=== PATIENT | female | born 1980 | race Caucasian/White ===

== ENCOUNTER 2018-09-08 01:06 | Emergency (ER) | payer BC, SELFPAY ==
[2018-09-08 01:08] VITALS: BP 143/89; PULSE 93; RESP 18; TEMP 36.8; O2SAT 97; BMI 25.0
--- NOTE | 2018-09-08 01:44 | RAD_ITS ---
HISTORY: Pain. EXAM/TECHNIQUE: XR Foot Min 3 Views: Right. COMPARISON: Ankle radiographs same date. FINDINGS: # of images incl. paperwork: 3 Please see ankle radiograph report regarding the lateral malleolar fracture. No other fracture is evident. The foot is intact with anatomic alignment and normal bony mineralization. RAD/Foot min 3 Views IMPRESSION: No fracture of the foot. Acute lateral malleolar fracture. at 0219 Reported and signed by: Abdiel Dinh MD Electronically Signed: Abdiel Dinh, at 2:18 EST Tel , Service support ,
--- NOTE | 2018-09-08 01:44 | RAD_ITS ---
HISTORY: Pain. EXAM/TECHNIQUE: XR Ankle Min 3 Views: Right. COMPARISON: None. FINDINGS: # of images incl. paperwork: 3 Acute fracture through the distal shaft of the fibula and the base of the lateral malleolus. The more distal portion is displaced laterally 3 mm. No other fracture is evident. Alignment otherwise anatomic. Soft tissue swelling adjacent to the fracture. RAD/Ankle min 3 Views IMPRESSION: Acute mildly displaced fracture through the base of the lateral malleolus. at 0218 Reported and signed by: Abdiel Dnih MD Electronically Signed: Abdiel Dinh, at 2:17 EST Tel , Service support ,
--- NOTE | 2018-09-08 02:34 | ED.DCSUM_ITS ---
- ER Visit Summary Date of Service: 09/08/18 Chief Complaint: Right foot pain History of Present Illness: The patient is a 38 F who presents with right foot pain and swelling. She was wrestling with her daughter about 2 hours ago. Her daughter fell onto her right foot. States that she felt a pop. She denies any other injuries. She denies recent illness. She does admit to alcohol intoxication tonight. Physical Examination: Afebrile vitals normal Heart regular rate and rhythm Lungs clear There is soft tissue swelling and focal tenderness over the lateral malleolus she has no tenderness at the foot itself she has brisk capillary refill normal sensation light touch no proximal fibular tenderness Test Results: Ankle and foot x-rays were obtained which showed acute mildly displaced fracture of the base of the lateral malleolus Emergency Department Course and Treatment: X-rays as above. Patient was given a boot orthosis and crutches and advised to not bear weight. She was referred to orthopedics. She was advised on rest ice elevation. She was given a prescription for short course of [place] for acute pain control and was discharged home. Treatment Plan: [] Disposition: Discharge Impression: Right lateral malleolus fracture This note was generated with [employer] dictation software. It may contain incorrect words, spelling, and punctuation that were not noted in review of the chart prior to signing ED Disposition - Plan for ED Patient: Referrals: Michael Espino MD [Primary Care Provider] -
--- NOTE | 2018-09-08 02:35 | DCINST.ED_ITS ---
ED Disposition - Plan for ED Patient: Instructions: ED Fx Ankle Lateral Malleolus Prescriptions: Hydrocodone Bitart/Apap 5-325 [Toby[place]anna 5MG-325MG] 1 tab PO Q6H PRN PRN 3 Days #10 tab PRN Reason: Pain Referrals: Michael Espino MD [Primary Care Provider] - Donaldo Guaman DO [STAFF PHYSICIAN] -
[2018-09-08 02:54] VITALS: PULSE 90; RESP 18
== END 2018-09-08 02:55 | disposition home or self-care (01) ==
LOC: ED 01:57
PROVIDERS: Emergency Provider Emergency Medicine; Family Provider Family Medicine; PCP Family Medicine
DX: S82.61XA Displaced fracture of lateral malleolus of right fibula, initial encounter for closed fracture (principal); W50.0XXA Accidental hit or strike by another person, initial encounter; Y93.72 Activity, wrestling; Y92.9 Unspecified place or not applicable; Y99.9 Unspecified external cause status; F10.129 Alcohol abuse with intoxication, unspecified
CPT/HCPCS: 73610; 73630; 99283

== ENCOUNTER → 2018-09-11 15:36 | Outpatient (CLI) | payer BC, SELFPAY ==
[2018-09-08 01:08] VITALS: BMI 25.0
--- NOTE | 2018-09-11 16:01 | RAD_ITS ---
STUDY: X-RAY CHEST REASON FOR EXAM: Female, 38 years old. Preoperative evaluation. History of smoker TECHNIQUE: PA and lateral views of the chest. COMPARISON: February 21, 2017 FINDINGS: The lungs are clear and expanded. There is no demonstrated pleural abnormality. Normal size heart. Normal mediastinum and [place]. Normal visualized pulmonary arteries. Normal visualized aortic arch and descending thoracic aorta. Normal visualized thoracic spine. Normal visualized ribs, clavicles, and shoulders. There is no demonstrated abnormality of the visualized soft tissue structures of the upper abdomen. RAD/Chest PA and Lateral IMPRESSION: No acute cardiopulmonary process. Electronically Signed: Aparna Romero MD at 16:46 EST Tel , Service support ,
--- NOTE | 2018-09-11 16:04 | EKG12_ITS ---
Test Reason : Blood Pressure : / mmHG Vent. Rate : 082 BPM Atrial Rate : 082 BPM P-R Int : 130 ms QRS Dur : 082 ms QT Int : 376 ms P-R-T Axes : 062 083 072 degrees QTc Int : 439 ms Normal sinus rhythm Normal ECG Confirmed by FORREST BOWEN ([id number]), greeting card editor EDUAR TY ([id number]) on 09/14/2018 1:31:17 PM Referred By: eLsli Cifuentes Confirmed By:FORREST BOWEN
[2018-09-11 16:44] LABS: Absolute Lymphocyte Count 1.68 X10^3/ul (0.83-4.51); Absolute Neutrophil Count 4.5 X10^3/uL (2.0-7.7); Basophil# 0.05 X10^3/uL; Basophil% 0.7 % (0-1); Eosinophils% 4.2 % (0-5); Hematocrit 44.4 % (37-47); Hemoglobin 14.8 g/dl (12.0-15.0); Lymphocyte # 1.68 X10^3/ul (4.0); Lymphocyte % 23.4 % (19-41); Mean Corp Hgb Conc 33.3 g/gl (32-36); Mean Corpuscular Hgb 36.6 pg (27.0-32.0); Mean Corpuscular Volume 109.9 fL (81-99); Mean Platelet Vol. 11.1 fl (6.2-12.0); Monocyte# 0.65 X10^3/uL; Monocyte% 9.1 % (0-10); Neutrophil # 4.47 X10^3/uL (2.7-7.7); Neutrophil % 62.3 % (47-70); Platelet Count 196 K/mm3 (150-450); RBC Distribution Width SD 52.2 fl (35.1-43.9); Red Blood Count 4.04 M/mm3 (4.2-5.4); White Blood Count 7.2 K/mm3 (4.4-11.0)
[2018-09-11 16:51] LABS: Anion Gap 7 (5-15); BUN 9 mg/dL (7-18); BUN/Creat Ratio 11.1 RATIO (10-20); Calcium,Total 8.7 mg/dL (8.5-10.1); Chloride 104 mmol/L (98-107); Creatinine, Serum 0.81 mg/dL (0.55-1.02); EST Glomerular Filtration Rate 83 mL/min (>60); Est Glom Filt Rate - Afr Amer 101 mL/min (>60); Glucose 85 mg/dL (74-106); Potassium 3.8 mmol/L (3.5-5.1); Sodium Level 137 mmol/L (136-145)
[2018-09-11 17:01] LABS: POSITIVE COUNT NO; POSITIVE DIFFERENTIAL NO; POSITIVE MORPHOLOGY NO
== END ==
LOC: LAB 15:46
PROVIDERS: Family Provider Family Medicine; PCP Family Medicine; Referring Provider Podiatrist Foot & Ankle Surgery; Visit Provider Podiatrist Foot & Ankle Surgery
DX: Z01.810 Encounter for preprocedural cardiovascular examination (principal); F17.200 Nicotine dependence, unspecified, uncomplicated
CPT/HCPCS: 36415; 71046; 80048; 85025; 93005

== ENCOUNTER 2018-09-25 05:45 | Day surgery (SDC) | payer BC, SELFPAY ==
[2018-09-25] VITALS (7 sets, daily range): BP systolic 113–148; BP diastolic 64–82; PULSE 75–115; RESP 14–18; TEMP 36.7–37.2; O2SAT 92–100; BMI 25.2
--- NOTE | 2018-09-25 07:30 | RAD_ITS ---
STUDY: X-RAY - RIGHT ANKLE REASON FOR EXAM: Female, 38 years old. ORIF fibular fracture TECHNIQUE: 8 view(s) of the ankle. COMPARISON: None. FINDINGS: Intraoperative spot fluoroscopy images were obtained demonstrating plate and screw fixation of the distal fibula. Ankle mortise appears maintained. Single osseous screw across the tibiotalar joint. Please see performing physician's report for further detail RAD/Ankle min 3 Views IMPRESSION: As above Electronically Signed: Noe Allen DO at 12:40 EDT Tel , Service support ,
[2018-09-25] MEDS: Cefazolin 2 GM in 0.9% Normal Saline 100 ML IV (07:40)
--- NOTE | 2018-09-25 09:16 | RAD_ITS ---
STUDY: X-RAY - RIGHT ANKLE REASON FOR EXAM: Female, 38 years old. Postop TECHNIQUE: 3 view(s) of the ankle. COMPARISON: None. FINDINGS: Patient has undergone ORIF of distal fibular fracture. Plate and screw fixation is noted. Single osseous screw bridging the tibiotalar joint. No evidence of ankle mortise widening. Overlying cast material is noted. Soft tissue swelling. Hardware appears intact RAD/Ankle min 3 Views IMPRESSION: As above Electronically Signed: Noe Allen DO at 12:41 EDT Tel , Service support ,
--- NOTE | 2018-09-25 09:23 | PCM.DC.ORTHO ---
Discharge Activity: May Not Drive, May not drive while taking narcotic pain medications., May Not Shower, Use Walker, Use Crutches Ice area for (Minutes): 20 - apply ice behind right knee 20 minutes of each hour while awake Weight Bearing Status: No weight bearing Keep extremity elevated above heart level: Operative Extremity Call your doctor if your incision/area has: Sudden Increased Bleeding Call your doctor if you observe: Fever of 101 or Higher, Shortness of breath, Dizziness, Chest pain, Increased palpitations (irregular heartbeat), Calf discomfort, Uncontrolled pain Cleanse incision/area with: Keep Dressing Clean & Dry Allergies/Adverse Reactions: Allergies vancomycin Allergy (Mild, Verified 09/18/18 15:05) Itching BENADRYL WITH MEDICATION Medications to take at Discharge Zylatine 1 drop EACH EYE DAILY 09/08/18 Oxycodone [Oxyir] 5 mg PO Q6H PRN PRN 7 Days #30 tab 09/25/18 The following prescriptions were given: Oxycodone [Oxyir] 5 mg PO Q6H PRN PRN 7 Days #30 tab PRN Reason: Pain Primary Care Physician: Michael Espino MD [Primary Care Provider] - Test Results: Test results from this visit will be discussed in further detail at your follow-up appointment, if applicable. Please Follow Up With: Lesli Cifuentes DPM - Please follow up at your previously scheduled post operative appointment next week. Proposed Discharge Date: 09/25/18
--- NOTE | 2018-09-25 09:27 | DCINST_ITS ---
Discharge Activity: May Not Drive, May not drive while taking narcotic pain medications., May Not Shower, Use Walker, Use Crutches Ice area for (Minutes): 20 - apply ice behind right knee 20 minutes of each hour while awake Weight Bearing Status: No weight bearing Keep extremity elevated above heart level: Operative Extremity Call your doctor if your incision/area has: Sudden Increased Bleeding Call your doctor if you observe: Fever of 101 or Higher, Shortness of breath, Dizziness, Chest pain, Increased palpitations (irregular heartbeat), Calf discomfort, Uncontrolled pain Cleanse incision/area with: Keep Dressing Clean & Dry Allergies/Adverse Reactions: Allergies vancomycin Allergy (Mild, Verified 09/18/18 15:05) Itching BENADRYL WITH MEDICATION Medications to take at Discharge Zylatine 1 drop EACH EYE DAILY 09/08/18 Oxycodone [Oxyir] 5 mg PO Q6H PRN PRN 7 Days #30 tab 09/25/18 The following prescriptions were given: Oxycodone [Oxyir] 5 mg PO Q6H PRN PRN 7 Days #30 tab PRN Reason: Pain Primary Care Physician: Michael Espino MD [Primary Care Provider] - Test Results: Test results from this visit will be discussed in further detail at your follow- up appointment, if applicable. Please Follow Up With: Lesli Cifuentes DPM - Please follow up at your previously scheduled post operative appointment next week. Proposed Discharge Date: 09/25/18
--- NOTE | 2018-09-25 09:50 | OP.PCM_ITS ---
Report of Operation Date of Procedure: 09/25/18 Pre-Operative Diagnosis: R distal fibula fracture w/ syndesmotic disruption, possible deltoid tear Post-Operative Diagnosis: R distal fibula fracture with syndesmotic disruption Surgery/Procedure Performed:: R ORIF distal fibula with trans-syndesmotic fixation; intraoperative stress views Description of Surgical Findings:: see dictation inking machine tender: Lisa Levin Type of Anesthesia:: General/Regional Estimated Blood Loss (mL): minimal Description of Procedure: Indications: Pt is a 38 yo F who sustained a R ankle fracture on 09/08/2018 and was seen in the [facility] ER the same day. She later followed up in my clinic where a gravity stress view of her right ankle showed increased syndesmotic gapping and medial clear space, along with her distal fibula fracture. She was seen by her PCP prior to surgery today. Smoking cessation was strongly recommended. She would like surgical intervention today. All risks, complications, and alternatives were discussed with the patient, and the patient signed an informed consent. No guarantees were given. Procedure: On 09/25/2018, Megan Rankin was visually and verbally identified in the preoperative holding area. The consent form was again reviewed with the patient, as were all risks, complications, and alternatives and the patient wished to proceed with the proposed surgery. The right ankle was marked as the correct operative extremity. The patient was brought to the operating room and placed on the operating room table in the lazy lateral position. After induction by anesthesia, a surgical time out was performed and all present were in agreement. a pneumatic thigh tourniquet was then placed. At this time the right lower extremity was prepped and draped in the usual sterile fashion. after exsanguination with an esmarch the tourniquet was inflated to 300 mmHg. At this time attention was directed to the right lateral ankle. Using a #15 blade a curvilinear incision was made over the distal fibula.The incision was bluntly carried deep through the subcutaneous tissues with careful attention paid to all bleeders, which were clamped and tied or bovied as necessary. All vital neurovascular structures were retracted. The peroneal tendons were retracted. The fracture line was identified and using blade and curette hematoma and soft tissue impingement was removed and the fracture was distracted and reduced. Fracture reduction and fibular length was confirmed by direct visualization and on intraoperative fluoroscopy. Reduction was maintained with a temporary k wire. A 3.5 lag screw was then placed per AO technique perpendicular to the fracture line. Good fixation was achieved. The temporary k wire was rem ирина. A Aleta Variax fibular plate was then placed with locking screws. Plate position and length as well as screw length was confirmed on intraoperative fluoroscopy. A cotton hook stress test and external rotation test was then done under intraoperative fluoroscopy which revealed increased syndesmotic gapping and slight increase in the medial clear space. A trans-syndesmotic screw was then placed, through the plate, across the tibiofibular joint and parallel to the tibiotalar joint. Length and position were confirmed on intraoperative fluoroscopy. The cotton hook stress test and external rotation stress views were repeated under intraoperative fluoroscopy. . There did not appear to be an syndesmotic gapping or increase in the medial clear space. I therefore did not open her medial ankle to perform deltoid repair. The incision was flushed with copious amounts of normal sterile saline and closure was initiated. 2.0 vicryl was used for deep tissue, 3.0 vicryl for subcutaneous tissue and 3.0 prolene for skin. Adaptic and dry sterile dressings were applied to the incision with a multilayer compressive bandage and well padded posterior splint. Total tourniquet time was 65 minutes with immediate capillary refill noted to all digits upon deflation. Intra operative fluoroscopy was utilized throughout the case, > 1 hour, to aid in visualization and confirmation of fracture reduction and screw and plate fixations. Interpretation of the images was vital to my decision making process. The patient tolerated the procedure and anesthesia well. The patient was then transported to the postanesthesia care unit by a member of the anesthesia team and myself with all vital signs stable and neurovascular status of the right lower extremity equal to pre-operative levels. At the end of the case all sponge, needle and instrument counts were found to be correct. Grafts/Implants Used: Aleta Vairax plate and screws - Complications none - Admit VTE Documentation VTE Present on Admission: No VTE Mechan Device Prophylaxis: SCD's, Knee High ISAK Hose VTE Pharm Prophylaxis ordered?: Yes
== END 2018-09-25 11:31 | disposition home or self-care (01) ==
LOC: SDC 05:46 → AC 05:48
PROVIDERS: Family Provider Family Medicine; PCP Family Medicine; Referring Provider Podiatrist Foot & Ankle Surgery; Visit Provider Podiatrist Foot & Ankle Surgery
PROC: (CPT 27792; principal; 2018-09-25 07:10)
DX: S82.831A Other fracture of upper and lower end of right fibula, initial encounter for closed fracture (principal); X58.XXXA Exposure to other specified factors, initial encounter; Y93.89 Activity, other specified; Y92.9 Unspecified place or not applicable
CPT/HCPCS: 27792; 27829; 64445; 73610; 76000; C1713; J7120; J2405

== ENCOUNTER → 2018-11-08 | Outpatient (CLI) | payer BC, SELFPAY ==
[2018-09-25 06:15] VITALS: BMI 25.2
[2018-11-08 10:05] LABS: Erythrocyte Sedimentation Rate 10 mm/hr (0-20)
[2018-11-08 10:08] LABS: Absolute Lymphocyte Count 1.31 X10^3/ul (0.83-4.51); Absolute Neutrophil Count 4.6 X10^3/uL (2.0-7.7); Basophil# 0.06 X10^3/uL; Basophil% 0.9 % (0-1); Eosinophil# 0.42 X10^3/uL; Hematocrit 42.9 % (37-47); Hemoglobin 14.6 g/dl (12.0-15.0); Lymphocyte # 1.31 X10^3/ul (4.0); Lymphocyte % 18.7 % (19-41); Mean Corpuscular Hgb 36.2 pg (27.0-32.0); Mean Corpuscular Volume 106.5 fL (81-99); Mean Platelet Vol. 10.3 fl (6.2-12.0); Monocyte# 0.65 X10^3/uL; Monocyte% 9.3 % (0-10); Neutrophil # 4.55 X10^3/uL (2.7-7.7); Platelet Count 198 K/mm3 (150-450); RBC Distribution Width CV 13.2 % (11.6-14.6); RBC Distribution Width SD 51.5 fl (35.1-43.9); Red Blood Count 4.03 M/mm3 (4.2-5.4)
[2018-11-08 10:12] LABS: POSITIVE COUNT NO; POSITIVE DIFFERENTIAL NO; POSITIVE MORPHOLOGY NO
[2018-11-08 10:47] LABS: ALB/GLOB Ratio 1.1 RATIO (0.9-2.4); AST(SGOT) 54 U/L (15-37); Alanine Aminotransfer ALT/SGPT 72 U/L (13-56); Albumin, Serum 4.1 g/dL (3.2-5.0); Alkaline Phosphatase 67 U/L (45-117); Anion Gap 10 (5-15); BUN 6 mg/dL (7-18); BUN/Creat Ratio 9.4 RATIO (10-20); CRP < 2.90 mg/L (0.0-3.0); Chloride 105 mmol/L (98-107); Creatinine, Serum 0.64 mg/dL (0.55-1.02); EST Glomerular Filtration Rate 110 mL/min (>60); Est Glom Filt Rate - Afr Amer 133 mL/min (>60); Globulin 3.6 g/dL (2.2-4.2); Glucose 74 mg/dL (74-106); Potassium 3.8 mmol/L (3.5-5.1); Protein, Total 7.7 g/dL (6.4-8.2); Sodium Level 139 mmol/L (136-145)
== END | disposition home or self-care (01) ==
PROVIDERS: Family Provider Family Medicine; PCP Family Medicine; Referring Provider Podiatrist Foot & Ankle Surgery; Visit Provider Podiatrist Foot & Ankle Surgery
DX: S82.61XD Displaced fracture of lateral malleolus of right fibula, subsequent encounter for closed fracture with routine healing (principal); T81.31XA Disruption of external operation (surgical) wound, not elsewhere classified, initial encounter; S93.421D Sprain of deltoid ligament of right ankle, subsequent encounter
CPT/HCPCS: 36415; 80053; 85025; 85652; 86140

== ENCOUNTER → 2020-10-23 13:13 | Outpatient (CLI) | payer BC, SELFPAY ==
[2018-09-25 06:15] VITALS: BMI 25.2
[2020-10-23 15:22] LABS: Absolute Lymphocyte Count 1.27 X10^3/uL (0.83-4.51); Absolute Neutrophil Count 6.3 X10^3/uL (2.0-7.7); Basophil# 0.06 X10^3/uL; Basophil% 0.7 % (0-1); Eosinophil# 0.22 X10^3/uL; Eosinophils% 2.6 % (0-5); Hematocrit 45.1 % (37-47); Hemoglobin 15.1 g/dL (12.0-15.0); Lymphocyte # 1.27 X10^3/ul (0.83-4.51); Mean Corp Hgb Conc 33.5 g/dL (32-36); Mean Corpuscular Hgb 36.8 pg (27.0-32.0); Mean Platelet Vol. 11.1 fl (6.2-12.0); Monocyte# 0.62 X10^3/uL; Monocyte% 7.3 % (0-10); NRBC Flagged by Analyzer 0 % (0-5); Neutrophil # 6.26 X10^3/uL (2.7-7.7); Platelet Count 233 K/mm3 (150-450); RBC Distribution Width CV 12.1 % (11.6-14.6); White Blood Count 8.5 K/mm3 (4.4-11.0)
[2020-10-23 16:00] LABS: AST(SGOT) 41 U/L (15-37); Alanine Aminotransfer ALT/SGPT 83 U/L (13-56); Albumin, Serum 4.3 g/dL (3.2-5.0); Alkaline Phosphatase 76 U/L (45-117); Bilirubin, Direct 0.18 mg/dL (0.00-0.30); Globulin 4.3 g/dL (2.2-4.2); Protein, Total 8.6 g/dL (6.4-8.2)
[2020-10-26 09:21] LABS: HIV - WCH Non-Reactive (Nonreactive); Hepatitis B Surface Antibody Reactive; Hepatitis B Surface Antigen Non-Reactive (Nonreactive); Hepatitis C Antibody Non-Reactive (Nonreactive)
[2020-10-29 20:08] LABS: QNTFERON TB Mitogen Value > 10.00 IU/mL (.); QNTFERON TB1+ Ag Value 0.34 IU/mL (.); QNTFERON TB2+ Ag Value 0.24 IU/mL (.)
[2020-10-29 20:10] LABS: Hepatitis B Core Ab Total Negative (Negative); QNTIFERON TB Positive Criteria Negative (Negative)
== END ==
PROVIDERS: PCP Family Medicine; Visit Provider Dermatology
DX: L40.0 Psoriasis vulgaris (principal); L28.0 Lichen simplex chronicus; L29.8 Other pruritus; Z79.899 Other long term (current) drug therapy
CPT/HCPCS: 36415; 80076; 85025; 86480; 86703; 86704; 86706; 86803; 87340

== ENCOUNTER → 2020-11-23 16:15 | Outpatient (CLI) | payer BC, SELFPAY ==
[2018-09-25 06:15] VITALS: BMI 25.2
--- NOTE | 2020-11-23 16:17 | BI_ITS ---
MAMMOGRAPHY - BILATERAL SCREENING 3-D TOMOSYNTHESIS REASON FOR EXAM: Female, 40 years old. Routine screening PERTINENT HISTORY: No significant family history. TECHNIQUE: 2-D mammograms and 3-D Tomosynthesis of the breast (s) were performed. CAD was performed. COMPARISON: None. FINDINGS: The breast composition is heterogeneously dense that can obscure small breast masses. Scattered benign calcifications are seen. No dense spiculated masses or suspicious microcalcifications are identified. No architectural distortion is identified. There is no skin thickening or retraction. BI/SCRN MAMM (CAD)W/SOCORRO BILAT IMPRESSION: No mammographic signs of malignancy. Routine yearly mammograms recommended. ASSESSMENT CATEGORY: BIRADS Category 2: Benign. A letter regarding these results will be sent to the patient by the facility within 30 days. FOLLOW UP RECOMMENDATION: Yearly follow up mammogram recommended. (A) Approximately 10% of breast cancers are not detected by mammography. A normal mammogram should not delay biopsy of a clinically suspicious abnormality. Electronically Signed: Ron Rivera MD at 11:11 EDT , Service support ,
--- NOTE | 2020-11-23 16:50 | RAD_ITS ---
INDICATION: PAIN WORSENING OVER TIME,SCOLIOSIS,COMPRESSION FX OR MASS EXAMINATION/TECHNIQUE: X-RAY - XR Spine Thoracic 2 Views COMPARISON: None FINDINGS: VERTEBRAE: Preserved vertebral body height. No fracture. No spondylolisthesis. Preservation of the normal thoracic kyphosis. No significant facet arthropathy. DISCS: Disc spaces are maintained. INCLUDED CHEST/ABDOMEN: No acute abnormalities. RAD/Thoracic Spine 2 Views IMPRESSION: Normal thoracic spine. Electronically Signed: Pipo Colon MD at 19:40 EDT Tel , Service support ,
== END ==
PROVIDERS: PCP Family Medicine; Referring Provider Family Medicine; Visit Provider Family Medicine
DX: M54.6 Pain in thoracic spine (principal); Z12.31 Encounter for screening mammogram for malignant neoplasm of breast
CPT/HCPCS: 72070; 77063; 77067

== ENCOUNTER → 2022-07-06 | Outpatient (CLI) | payer BC, SELFPAY ==
[2022-07-06 17:37] LABS: Absolute Lymphocyte Count 1.98 X10^3/uL (0.83-4.51); Absolute Neutrophil Count 5.3 X10^3/uL (2.0-7.7); Basophil# 0.06 X10^3/uL; Basophil% 0.7 % (0-1); Eosinophils% 2.5 % (0-5); Hematocrit 40.4 % (37-47); Lymphocyte # 1.98 X10^3/ul (0.83-4.51); Lymphocyte % 24.6 % (19-41); Mean Corp Hgb Conc 34.7 g/dL (32-36); Mean Corpuscular Hgb 37.4 pg (27.0-32.0); Mean Platelet Vol. 10.3 fl (6.2-12.0); Monocyte# 0.52 X10^3/uL; Monocyte% 6.5 % (0-10); NRBC Flagged by Analyzer 0 % (0-5); Neutrophil # 5.27 X10^3/uL (2.7-7.7); Neutrophil % 65.3 % (47-70); Platelet Count 185 K/mm3 (150-450); RBC Distribution Width CV 12.5 % (11.6-14.6); RBC Distribution Width SD 50.2 fl (35.1-43.9); Red Blood Count 3.74 M/mm3 (4.2-5.4); White Blood Count 8.1 K/mm3 (4.4-11.0)
[2022-07-06 18:18] LABS: AST(SGOT) 54 U/L (15-37); Alanine Aminotransfer ALT/SGPT 80 U/L (13-56); Albumin, Serum 3.5 g/dL (3.2-5.0); Alkaline Phosphatase 85 U/L (45-117); Bilirubin, Direct 0.14 mg/dL (0.00-0.30); Globulin 3.7 g/dL (2.2-4.2); Protein, Total 7.2 g/dL (6.4-8.2)
[2022-07-08 17:07] LABS: QNTFERON TB Mitogen Value > 10.00 IU/mL (.); QNTFERON TB1+ Ag Value 0.14 IU/mL (.); QNTFERON TB2+ Ag Value 0.29 IU/mL (.)
[2022-07-08 19:02] LABS: QNTIFERON TB Positive Criteria Negative (Negative)
== END | disposition home or self-care (01) ==
LOC: LAB 17:21
PROVIDERS: PCP Family Medicine; Referring Provider Dermatology; Visit Provider Dermatology
DX: Z79.899 Other long term (current) drug therapy (principal)
CPT/HCPCS: 36415; 80076; 85025; 86480

== ENCOUNTER → 2024-09-20 | Outpatient (CLI) | payer BC, SELFPAY ==
--- NOTE | 2024-09-20 15:18 | RAD_ITS ---
EXAM: XR Chest, 2 Views CLINICAL INDICATION: COUGH TECHNIQUE: Frontal and lateral views of the chest. COMPARISON: No relevant prior studies available. FINDINGS: LUNGS AND PLEURAL SPACES: Unremarkable. No consolidation. No pneumothorax. HEART: Unremarkable. No cardiomegaly. MEDIASTINUM: Unremarkable. Normal mediastinal contour. BONES/JOINTS: Unremarkable. No acute fracture. RAD/Chest PA and Lateral IMPRESSION: No acute cardiopulmonary process. Reading [facility]
== END | disposition home or self-care (01) ==
PROVIDERS: PCP Nurse Practitioner Family; Referring Provider Nurse Practitioner Family; Visit Provider Nurse Practitioner Family
DX: R05.9 Cough, unspecified (principal)
CPT/HCPCS: 71046